=== PATIENT | male | born 1995 | race Asian ===

== ENCOUNTER 2018-07-04 00:09 | Emergency (ER) | payer OTHER ==
[2018-07-04 00:57] VITALS: BP 125/92; PULSE 79; BMI 23.8
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
[2018-07-04 01:22] VITALS: TEMP 98
== END 2018-07-04 02:25 | disposition home or self-care (01) ==
LOC: JER 00:09
DX: M79.605 Pain in left leg (principal); V43.52XA Car driver injured in collision with other type car in traffic accident, initial encounter; Y92.414 Local residential or business street as the place of occurrence of the external cause; Y93.89 Activity, other specified; Y99.8 Other external cause status
CPT/HCPCS: 99282-25

== ENCOUNTER 2018-07-05 17:25 | Emergency (ER) | payer OTHER ==
[2018-07-05 17:36] VITALS: BP 121/89; PULSE 76; TEMP 98.6; BMI 23.4
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
== END 2018-07-05 19:08 | disposition home or self-care (01) ==
LOC: JERFT 17:25
DX: S13.4XXA Sprain of ligaments of cervical spine, initial encounter (principal); M54.5 Low back pain
CPT/HCPCS: 72050-TC-FY; 72070-TC-FY; 99281-25

== ENCOUNTER 2018-07-09 11:07 | Emergency (ER) | payer OTHER ==
[2018-07-09 11:42] VITALS: BP 107/71; PULSE 64; TEMP 98; BMI 23.4
--- NOTE | 2018-07-09 11:57 | PDOC ---
*Physical Exam - Vital Signs Last Vital Signs Temp Pulse Resp BP Pulse Ox 98 F 64 16 107/71 98 07/09/18 11:41 07/09/18 11:41 07/09/18 11:41 07/09/18 11:41 07/09/18 11:41 Medical Decision Making - Medical Decision Making 07/09/18 11:57 Pt seen by Midlevel Provider under my direct supervision Ancillary studies reviewed I agree with plan as outlined by Midlevel Provider *DC/Admit/Observation/Transfer Diagnosis at time of Disposition: Lumbago without sciatica - Discharge Dispostion Disposition: HOME Condition at time of disposition: Stable - Prescriptions Prescriptions: Methocarbamol [Robaxin -] 500 mg PO BID #14 tablet Naproxen 500 mg PO BID #14 tablet - Referrals Referrals: Pablo Camacho MD [Staff Physician] - Pacheco Phan MD [Staff Physician] - Jose Patrick DO [Staff Physician] - - Patient Instructions Printed Discharge Instructions: DI for Low Back Pain Additional Instructions: You have low back pain due to a muscle spasm. It can take 10-14 days before you feel completely better Please take Naproxen twice a day You were also prescribed Roboxen Take the medication before you go to bed. Do not drive after taking this medication as it may make you sleepy. You may use warm compresses on your back to help with your symptoms. No lifting more than 10 lbs until your symptoms resolve. Do gentle stretching exercises as discussed Please follow-up with orthopedics. A referral has been provided to you. Return to the emergency department if you have worsening back pain, bladder or bowel incontinence, numbness and tingling in her legs, changes in the way you walk, or any new or worsening symptoms. - Post Discharge Activity Forms/Work/School Notes: Back to Work
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
== END 2018-07-09 13:06 | disposition home or self-care (01) ==
LOC: JER 11:07
DX: M62.830 Muscle spasm of back (principal); M54.5 Low back pain; V43.52XD Car driver injured in collision with other type car in traffic accident, subsequent encounter
CPT/HCPCS: 99282-25